=== PATIENT | male | born 1970 | race Two or more races ===

== ENCOUNTER 2024-08-09 16:29 | Emergency (ER) | payer OTHER ==
[~2024-08-09] VITALS: Ht 167.6 cm; Wt 99.8 kg
[2024-08-09] MEDS ORDERED: METFORMIN HCL500 M3 (17:22)
[2024-08-09] MEDS ORDERED: CARVEDILOL3.125 M1 (17:22)
[2024-08-09] MEDS ORDERED: CHILDREN'S ASPI81 MG (17:22)
[2024-08-09] MEDS ORDERED: LIPITOR20 MG (17:23)
[2024-08-09] MEDS ORDERED: HYDRALAZINE HCL10 MG (17:23)
[2024-08-09] MEDS ORDERED: ALDACTONE25 MG (17:24)
[2024-08-09] MEDS ORDERED: ATACAND32 MG (17:25)
[2024-08-09 19:22] LABS: HEMATOCRIT 40.5 % (39.0-48.0); HEMOGLOBIN 13.6 g/dL (13-16.00); MEAN CELL VOLUME 83.8 fL (80.0-100.00); MEAN CORPUSCULAR HEMOGLOBIN 28.2 pg (27.00-32.0); MEAN CORPUSCULAR HGB CONC 33.6 g/dl (32.0-36.0); PLATELET COUNT 234 K/uL (150-450); RED BLOOD COUNT 4.83 M/uL (4.00-6.00); RED CELL DISTRIBUTION WIDTH 13.6 % (11.5-14.5)
[2024-08-09 19:37] LABS: URINE APPEARANCE Clear; URINE BILIRRUBIN Negative (NEGATIVE); URINE BLOOD Negative; URINE COLOR Yellow; URINE KETONE 15 (NEGATIVE); URINE LEUKOCYTE Negative; URINE NITRATE Negative; URINE PROTEIN Negative (NEGATIVE); URINE UROBILINOGEN 0.2 E.U./dl
[2024-08-09 19:40] LABS: URINE BACTERIA 7.3 uL (0.0-1933); URINE EPITHELIAL CELLS 1.7 uL (0.0-38.8); URINE WBC 3.1 uL (0.0-23.2)
[2024-08-09 19:41] LABS: URINE CAST 0.14 uL (0.0-1.40); URINE GLUCOSE >=1000 MG/DL (NEGATIVE)
[2024-08-09 19:45] LABS: BILIRUBIN TOTAL 0.41 mg/dL (0.3-1.2); CALCIUM 9.6 mg/dL (8.5-10.1); CREATININE SERUM 1.14 mg/dL (0.70-1.30); GFR 67.45; GLOBULINA 2.9 G/DL (2.4-3.5); POTASSIUM 4.21 mEq/L (3.5-5.1); TOTAL PROTEIN 6.9 gm/dL (6.4-8.2)
== END 2024-08-09 21:45 ==
LOC: ER 16:30
PROVIDERS: Emergency Medicine
DX: R10.31 Right lower quadrant pain (principal); I10 Essential (primary) hypertension; E11.9 Type 2 diabetes mellitus without complications; Z79.84 Long term (current) use of oral hypoglycemic drugs